=== PATIENT | male | born 1950 | race Caucasian/White ===

== ENCOUNTER 2016-10-22 23:11 | Inpatient (IN) | payer OTHER ==
[~2016-10-22] VITALS: Ht 180.3 cm; Wt 89.4 kg
--- NOTE | ~2016-10-22 | WRIGHTHP ---
[place], [place] PATIENT HISTORY AND PHYSICAL EXAM NAME: NICHOL MG UNIT #: [id number] ROOM: [facility] DOCTOR: LISA CORTES MD BIRTHDATE: [birth year] DATE OF DICTATION: 10/23/16 DATE OF ADMISSION: 10/23/16 HISTORY OF PRESENT ILLNESS: The patient is a 66-year-old gentleman with a past medical history of end-stage kidney disease and kidney failure. The patient requires hemodialysis, complete heart block with dual chamber placement by Dr. Marin, systolic type congestive heart failure, type 2 diabetes mellitus, benign essential hypertension, history of chronic atrial fibrillation, status post pacemaker placement, history of osteomyelitis of the C-spine with multiple surgeries with paraplegia and chronic urine retention, which requires straight catheterization, posttraumatic stress syndrome. The patient presented to the Emergency Department with increasing complaints of shortness of breath and some recurrent chest pains, precordial chest pains since Sunday. The patient was seen in the Emergency Department for these symptoms and found to be in acute congestive heart failure by Dr. Rogers. The patient was initially given IV nitroglycerin and diuretics and recommended for admission and further management. After admission, the patient is undergoing hemodialysis. The patient says he has no chest pains anymore, but his troponin level was found to be minimally elevated at 0.54. The patient is asymptomatic now, and his breathing is improving as the fluid is being removed at hemodialysis in the ICU. No dizziness or fainting episodes. No other GI or urinary symptoms. REVIEW OF SYSTEMS: LUNGS: With increased shortness of breath for the last few days. GASTROINTESTINAL: No nausea, vomiting, diarrhea, constipation. CARDIOVASCULAR SYSTEM: Complains of recurrent precordial chest pains prior to admission. SOCIAL HISTORY: The patient lives at home with the help of his family. Denies smoking cigarettes, alcohol and drug abuse. FAMILY HISTORY: Noncontributory. HOME MEDICATIONS: Lisinopril, Bumex, amlodipine, bupropion, calcium, doxycycline, gabapentin, melatonin, Protonix, Flomax, trazodone, venlafaxine, Levemir insulin. PHYSICAL EXAMINATION: GENERAL: Alert and oriented x3. Generalized weakness. VITAL SIGNS: Blood pressure 146/75, heart rate of 85 beats per minute, breathing 20 times per minute, temperature 98.4 degrees Fahrenheit. HEENT AND NECK: Extraocular movements are intact. Sclerae are anicteric. Oral mucosa is moist and clean. No obvious facial weakness. Neck is supple without any lymphadenopathy. No thyromegaly. No JVD. No carotid arterial bruits. LUNGS: Clear to auscultation. No wheezing. No rhonchi. CARDIOVASCULAR SYSTEM: Heart rate is regular in rate and rhythm. S1 and S2 normally audible. No significant murmur or any other abnormal cardiac sounds. ABDOMEN: Soft, nontender. No obvious organomegaly. Bowel sounds are present. No obvious herniation. EXTREMITIES: Without significant cyanosis or edema. Warm to touch. CENTRAL NERVOUS SYSTEM: Alert and oriented x 3. Cranial nerves 2 through 12 are intact. Speech is normal. The patient is able to move all extremities. Normal muscle strength. Deep tendon reflexes are equal on both sides. Plantars were downgoing. [place], [place] PATIENT HISTORY AND PHYSICAL EXAM NAME: NICHOL MG UNIT #: [id number] ROOM: [facility] DOCTOR: LISA CORETS MD BIRTHDATE: [birth year] IMPRESSION: 1. The patient with minimally positive cardiac enzymes and recurrent chest pains. His manager medical affairs, Dr. Marin has been consulted for further management. 2. Acute congestive heart failure for which patient is on hemodialysis and extra fluid is being removed. 3. Acute systolic congestive heart failure, being treated. 4. Generalized disability and quadriplegia with previous history of osteomyelitis of the C-spine and treatment. We are taking bedsore precautions. 5. End-stage kidney disease and kidney failure. The patient is on hemodialysis. 6. Type 2 diabetes mellitus. The patient's blood sugars are being monitored daily kept on no concentrated sweet diet and treated accordingly. 7. Complete heart block with dual chamber pacemaker placement by Dr. Marin. The patient with 100% capture on the monitoring analyst. LISA CORTES MD CM:HISPHYS:PATIENT HISTORY AND PHYSICAL EXAMINATION 8 8 LISA CORTES MD 10/24/16 1547 CLAIRE PARSON MIS.R
[2016-10-22 23:11] VITALS: BP 152/79
[~2016-10-22 23:11] MED LIST: AMLODIPINE BES1 TA1 PO; ANAPROX DS550 MG PO; ASPI-COR81 M1 PO; BUPROPION HCL100 M2 PO; BUPROPION HCL100 MG PO; CALCIUM ACETAT667 MG PO; CLONIDINE0.1 MG PO; Cimetidine300 MG PO; Duoneb 3ML 3 MG/3 ML INH; EMLA 2.5% 30GM30 GM PO; FLEXERIL10 MG PO; FUROSEMIDE40 MG PO; GABAPENTIN100 M2 PO; GLIPIZIDE5 MG PO; HUMALOG100 U/ML SC; HYDR12.5C PO; KLOR-CON 1010 MEQ PO; LANTUS100 U/ML SC; LASIX100 MG/10 IV; LEVAQUIN250 M1 PO; LEVEMIR10 ML SC; LEVOFLOXACIN500 MG PO; LISINOPRIL10 M1 PO; LISINOPRIL20 MG PO; PEPCID20 MG PO; PERCOCET 325 MG1 TA2 PO; PROTONIX TR40 MG PO; PULMICORT RESP0.5 MG INH; TAGAMET300 MG PO; TAMSULOSIN HYD0.4 MG PO; TOPROL XL50 MG PO; TRAZODONE HYDR100 MG PO; VENLAFAXINE HYD25 MG PO; VENLAFAXINE HYD75 MG PO; VIBRAMYCIN HYC100 MG PO; VICODIN 5-3001 EACH PO; WARFARIN SODIU7.5 MG PO
[2016-10-22 23:38] LABS: BASO % 0.6 % (0.0-1.0); EOS # 0.3 10*3/uL (0.0-0.4); EOS % 4.2 % (1.0-4.0); HEMATOCRIT 26.7 % (42.0-52.0); HEMOGLOBIN 8.8 g/dl (14.0-18.0); IG # 0.1 10*3/uL (0.0-0.1); LYMPH # 0.9 10*3/uL (1.3-4.4); LYMPH % 12.1 % (27.0-41.0); MEAN CELL VOLUME 100.8 fl (80.0-94.0); MEAN CORPUSCULAR HGB 33.2 pg (27.0-31.0); MEAN PLATELET VOLUME 10.1 fl (9.6-12.3); MONO # 0.5 10*3/uL (0.1-1.0); MONO % 6.3 % (3.0-9.0); NEUT # 5.5 10*3/uL (2.3-7.9); NEUT % 75.7 % (47.0-73.0); PLATELET COUNT AUTOMATED 186 10*3/uL (130-400); RED BLOOD COUNT 2.65 10*6/uL (4.50-5.90); RED CELL DISTRI WIDTH 15.2 % (0-14.5); WHITE BLOOD COUNT 7.2 10*3/uL (4.8-10.8)
[2016-10-22] MEDS ORDERED: DOXYCYCLINE100 M3 PO (23:41)
[2016-10-22] MEDS ORDERED: MELATONIN1 M4 PO (23:42)
[2016-10-22] MEDS ORDERED: BUMETANIDE2 MG PO (23:42)
[2016-10-22 23:45] VITALS: BP 159/80
[2016-10-22 23:46] LABS: PROTHROMBIN TIME 11.1 SECONDS (9.0-12.4)
[2016-10-22 23:52] LABS: ALBUMIN 3.1 gm/dl (3.1-4.5); BILIRUBIN, TOTAL 0.5 mg/dl (0.2-1.0); MAGNESIUM 2.1 mg/dL (1.5-2.1); POTASSIUM 4.6 mmol/L (3.5-5.1); TOTAL PROTEIN 6.9 gm/dL (6.4-8.2); TROPONIN I 0.041 ng/ml (<0.045)
[2016-10-23] VITALS (8 sets, daily range): BP systolic 136–164; BP diastolic 64–88
[2016-10-23] MEDS ORDERED: FLOMAX0.4 MG PO (02:44)
== END 2016-10-23 21:48 | disposition short-term general hospital (02) | DRG 291 ==
LOC: ED 23:11 → EDHOLD 10-23 00:54 → ICCU 10-23 01:48
PROVIDERS: Emergency Medicine Emergency Medical Services
DX: I13.2 Hypertensive heart and chronic kidney disease with heart failure and with stage 5 chronic kidney disease, or end stage renal disease (principal); I50.21 Acute systolic (congestive) heart failure; G82.50 Quadriplegia, unspecified; I44.2 Atrioventricular block, complete; J18.1 Lobar pneumonia, unspecified organism; N18.6 End stage renal disease; E11.22 Type 2 diabetes mellitus with diabetic chronic kidney disease; E11.40 Type 2 diabetes mellitus with diabetic neuropathy, unspecified; R07.9 Chest pain, unspecified; I48.2 Chronic atrial fibrillation; E78.5 Hyperlipidemia, unspecified; F43.10 Post-traumatic stress disorder, unspecified; D64.9 Anemia, unspecified; Z98.1 Arthrodesis status; Z95.0 Presence of cardiac pacemaker; Z87.81 Personal history of (healed) traumatic fracture; Z99.2 Dependence on renal dialysis; Z79.4 Long term (current) use of insulin; Z88.1 Allergy status to other antibiotic agents

== ENCOUNTER 2016-11-23 00:16 | Inpatient (IN) | payer OTHER ==
[~2016-11-23] VITALS: Ht 180.3 cm; Wt 87.7 kg
--- NOTE | ~2016-11-23 | PR ---
[place], [place] PROGRESS NOTE NAME: NICHOL MG UNIT #: [id number] ROOM: 524 DOCTOR: ANNALISA PRINCE MD BIRTHDATE: [birth year] DOS: 11/28/2016 PULMONARY PROGRESS NOTE SUBJECTIVE: The patient was seen and examined on 11/28/2016. He has been comfortably resting at this time, sitting on his bed. The patient has not been noted with symptoms of any chest pain. The coughing of the patient has been improving. Shortness of breath has continued to show progressive resolution. The patient denies any symptoms of chest pain. The coughing of the patient has improved significantly. The shortness of breath has been resolving. Denies symptoms of abdominal pain. The patient has been receiving his routine hemodialysis 3 times a week. OBJECTIVE: VITAL SIGNS: For the patient which were recorded showed the temperature of the patient recorded as normal. The respiratory rate 20, heart rate 90, blood pressure 150/63. HEENT: Examination shows no acute change. NECK: Supple. CARDIOVASCULAR: S1, S2 is audible. LUNGS: The patient was noted without any wheezing or crackles on the left side. Questionable crackles were noted with moderate reduction in breath sounds in the right lung. ABDOMEN: Soft, nontender. IMPRESSION: 1. The patient with resolving acute bacterial pneumonia with improving acute respiratory failure as well. 2. Acute on chronic hypoxic respiratory failure. 3. The patient with end-stage renal failure, on hemodialysis. PLAN OF TREATMENT: No changes in plan of management. Continue the patient on current therapy, plan of management at this time. Discharge planning could be started for this patient. Other supportive plan of therapy and care. [place], [place] PROGRESS NOTE NAME: NICHOL MG UNIT #: [id number] ROOM: 524 DOCTOR: ANNALISA PRINCE MD BIRTHDATE: [birth year] ANNALISA FARRAR MD CM:PNTRANS [id number] ANNALISA CASH MD 11/29/16 0631 interface
--- NOTE | ~2016-11-23 | PR ---
[place], [place] PROGRESS NOTE NAME: NICHOL MG UNIT #: [id number] ROOM: [facility] DOCTOR: RIANA SERRANO MD BIRTHDATE: [birth year] DOS: 11/24/2016 SUBJECTIVE: The patient became increasingly short of breath in the evening, was transferred to the ICU and I did change some of his antibiotic regimen. This morning, he is still pretty short of breath, has to sit up to breathe. OBJECTIVE: VITAL SIGNS: Pressure is 146/73, pulse of 91, respirations about 25, temperature 98.1 with a T-max of 101.6. LUNGS: Diminished breath sounds, scattered rales and rhonchi heard bilaterally. HEART: Regular, paced rhythm on the monitor. ABDOMEN: Obese, soft. EXTREMITIES: Without any edema. ASSESSMENT AND PLAN: 1. Right middle and lower lobe pneumonia, on IV antibiotics. Blood cultures are pending. 2. Acute hypoxic respiratory failure. The patient was placed on BiPAP, has tolerated that well. He is okay with intubation if needed. 3. History of pacemaker placement for complete heart block. He did develop episode where the heart rate did go up into the 160s, 1 dose of digoxin was given. 4. End-stage renal failure, on dialysis. Consult Dr. Aguilar. 5. Type 2 diabetes mellitus, insulin-dependent, readjust insulin dosage. RIANA SERRANO MD CM:PNTRANS [phone] RIANA SERRANO MD 11/24/16 0846 interface
--- NOTE | ~2016-11-23 | PR ---
[place], [place] PROGRESS NOTE NAME: NICHOL MG UNIT #: [id number] ROOM: 524 DOCTOR: ANNALISA PRINCE MD BIRTHDATE: [birth year] DOS: 11/30/2016 PULMONARY PROGRESS NOTE SUBJECTIVE: He has been comfortably resting at this time on his bed. Denies symptoms of chest pain, coughing or any sputum expectoration. The patient has been receiving hemodialysis per order of the Nephrology services 3 times per week. OBJECTIVE: VITAL SIGNS: Showed normal temperature, the patient's respiratory rate 17, heart rate 102, blood pressure 127/58. Intake 650, the patient's output was 100 mL, pulse oxygen saturation on 2.5 liters nasal cannula 99% saturation. HEENT: Shows no acute change. NECK: Supple. CARDIOVASCULAR: S1, S2 audible. LUNGS: Noted with questionable crackles in the right lung. There was no wheezing. ABDOMEN: Soft, nontender. LABORATORY DATA: BMP today: BUN 35, creatinine 4.43. Remaining electrolytes normal. CBC this morning, WBC count 11.6, hemoglobin 11.8, hematocrit 36.4, platelet count 189,000. The chest x-ray of the patient that was done this morning for this patient shows clear left lung for this patient and the right lung for this patient noted with chronic pleural thickening as previously with small infiltration in the right lower lobe. IMPRESSION: 1. Acute pneumonia, clinically improved for this patient progressively with stable changes on the chest x-ray was also noted. 2. End-stage renal failure, on hemodialysis. 3. Resolving acute on chronic hypoxic respiratory failure and improvement in the acute exacerbation of bronchial asthma. PLAN OF TREATMENT: No changes in the plan of management for this patient at this time. The patient will be continued with current plan of therapy as previously. Other supportive plan and management as well. Usual care. The patient has been suggested about placement in Care Home Facility because of current debility and failure to thrive, but the patient refused to do so and may be discharged home today. [place], [place] PROGRESS NOTE NAME: NICHOL MG UNIT #: [id number] ROOM: 524 DOCTOR: ANNALISA PRINCE MD BIRTHDATE: [birth year] ANNAILSA FARRAR MD CM:PNTRANS [phone] [id number] ANNALISA CASH MD 12/01/16 0133 interface
--- NOTE | ~2016-11-23 | PR ---
[place], [place] PROGRESS NOTE NAME: NICHOL MG UNIT #: [id number] ROOM: [facility] DOCTOR: PRAVIN MIRZA MD BIRTHDATE: [birth year] DOS: REASON FOR FOLLOWUP: End-stage renal disease. SUBJECTIVE: The patient today reports feeling better. He has no major complaint. Overnight, he was transferred back to the ICU due to increasing shortness of breath. Denies any fever, chills, vomiting, or diarrhea. PHYSICAL EXAMINATION: VITAL SIGNS: Blood pressure ____, heart rate 96, temperature 100.1. GENERAL: The patient is awake, alert, in no acute distress. He is sitting comfortably on the chair. HEENT: Pupils are equal and reactive to light. NECK: Supple. There is no jugular venous distention. LUNGS: He has decreased breath sounds at the bases. HEART: Sounds are irregularly irregular. ABDOMEN: Soft, nontender. EXTREMITIES: He has 1+ bilateral lower extremity edema. LABORATORY DATA: Most recently obtained from 11/23, glucose 227, BUN 31, creatinine 4.05, sodium 137, potassium 3.6, chloride 94, carbon dioxide 35, calcium 8.2. White count was 6.1, hemoglobin 10.9, hematocrit 33.1, and platelet count 195. IMPRESSION: 1. End-stage renal disease, on intermittent hemodialysis 3 times a week, Sunday, Sunday, and Sunday, the patient is tolerating dialysis very well. 2. Respiratory failure due to chronic obstructive pulmonary disease exacerbation and right lower lobe pneumonia, on antibiotics per Infectious Disease. 3. Anemia. His hemoglobin is adequate at this point, he will be started on Epogen 6000 units on dialysis 3 times a week. PLAN: 1. We will continue with dialysis 3 times a week, Sunday, Sunday, and Sunday. 2. Epogen 6000 units 3 times a week. 3. Continue to monitor his laboratory tests on a daily basis. 4. Okay to transfer to telemetry bed from renal point of view. [place], [place] PROGRESS NOTE NAME: NICHOL MG UNIT #: [id number] ROOM: [facility] DOCTOR: PRAVIN MIRZA MD BIRTHDATE: [birth year] PRAVIN MIRZA MD CM:PNTRANS [id number] PRAVIN MIRZA MD 11/27/16 0306 interface
--- NOTE | ~2016-11-23 | PR ---
[place], [place] PROGRESS NOTE NAME: NICHOL MG UNIT #: [id number] ROOM: 524 DOCTOR: RIANA SERRANO MD BIRTHDATE: [birth year] DOS: 11/30/2016 SUBJECTIVE: The patient states that he feels better and would like to go home. He has refused SNF placement. OBJECTIVE: VITAL SIGNS: Blood pressure is 112/59, pulse of 107, respirations 20, temperature 99.1. LUNGS: Diminished breath sounds. HEART: Regular. ABDOMEN: Obese, soft. EXTREMITIES: Without any edema. ASSESSMENT AND PLAN: 1. Pneumonia, improvement noticed on the chest x-ray findings and right middle lobe pneumonia still present, but it is slowly resolving. The patient will continue to receive IV antibiotics during the dialysis days. 2. Type 2 diabetes mellitus, insulin-dependent. Blood sugars are better this morning. Glipizide was added yesterday. 3. End-stage renal failure, on dialysis. 4. Benign hypertension, controlled. Plan will be to follow up as an outpatient. RIANA SERRANO MD CM:PNTRANS [phone] RIANA SERRANO MD 11/30/162124 interface
--- NOTE | ~2016-11-23 | PR ---
[place], [place] PROGRESS NOTE NAME: NICHOL MG UNIT #: [id number] ROOM: [facility] DOCTOR: CHARAN CASH MD,ANNALISA BIRTHDATE: [birth year] DOS: 11/24/2016 PULMONARY PROGRESS NOTE SUBJECTIVE: The patient has developed significant distress last evening. He was noted extremely anxious. The patient was given 0.25 mg of Ativan for this patient and started on the BiPAP after obtaining arterial blood gases. The patient was also noted with tachycardia and some hypertensive response as well. He was transferred to Intensive Care Unit for patient for the medical management. Rectal temperature noted 102 degrees Fahrenheit. The patient has been noted comfortable at this time, but using the BiPAP for the patient as ordered. The tachycardia has been noted. The blood pressure was also noted for the patient in good range. OBJECTIVE: VITAL SIGNS: The temperature highest of 102 degrees Fahrenheit rectally noticed. This morning oral temperature noted normal, respiratory rate of 16, highest was noted yesterday at 30. Heart rate was noted maximum heart rate of 116 beats per minute, sinus tachycardia, currently noted 91, blood pressure noted at 146/73 this morning. The pulse oxygen saturation for the patient on 3 L nasal cannula was 97% saturation, on the BiPAP for the patient 06/13 35% oxygen 98% saturation recorded. HEENT: Examination shows head was atraumatic. Eyes nonicterus. NECK: Supple. CARDIOVASCULAR SYSTEM: S1, S2 audible. LUNGS: Noted with crackles of the lungs for the patient noted with expiratory wheezing for the patient which was noted somewhat decreased from yesterday's examination. ABDOMEN: Soft, nontender. LABORATORY DATA: Urinalysis showed 2+ leukocyte esterase. Arterial blood gas for the patient, pH of 7.40, pCO2 of 48, pO2 81 On 3 L nasal cannula oxygen supplementation. CT scan of the chest for the patient that was done without contrast was personally reviewed shows right middle lobe and right lower lobe infiltration noted with a very small pleural effusion on the right side. IMPRESSION: 1. The patient with pneumonia involving the right middle and right lower lobe consolidation for this patient was noted with chronic, most likely pleural thickening for this patient secondary to previous VATS procedure for this patient not noted with any recurrence. 2. Acute respiratory failure with acute exacerbation of bronchial asthma as well. The pneumonia has been considered aspiration gram-positive organism for this patient. PLAN OF TREATMENT: Continue the current dose of Solu-Medrol, bronchodilators, antibiotics, monitor respiratory status closely. The patient appeared to be comfortable at this time responding to treatment with no further changes in the treatment needs to be done. All other treatment plan of therapy to be continued as previously. Usual care. Supportive care and other treatment, plan and [place], [place] PROGRESS NOTE NAME: NICHOL MG UNIT #: [id number] ROOM: [facility] DOCTOR: ANNALISA PRINCE MD BIRTHDATE: [birth year] management. ANNALISA FARRAR MD CM:PNTRANS [phone] ANNALISA CASH MD 11/25/160 interface
--- NOTE | ~2016-11-23 | PR ---
[place], [place] PROGRESS NOTE NAME: NICHOL MG UNIT #: [id number] ROOM: 524 DOCTOR: RIANA SERRANO MD BIRTHDATE: [birth year] DOS: 11/28/2016 SUBJECTIVE: The patient is doing fine without any complaint. Denies any chest pains, palpitations. He did eat well. OBJECTIVE: VITAL SIGNS: Graphic trend shows a pressure of 126/74, pulse of 90, respirations 20, temperature 98.5. LUNGS: Diminished breath sounds. No wheezes, rales or rhonchi heard this morning. HEART: Regular. ABDOMEN: Obese. EXTREMITIES: Without any edema. LABORATORY DATA: A chest x-ray shows improving right lower lobe pneumonia. Sputum culture shows some light yeast. ASSESSMENT AND PLAN: 1. Acute pneumonia, right side, both upper and middle lobe pneumonia. The patient is on IV antibiotics, which will be continued. 2. Vancomycin-resistant enterococci of the urine, on Zyvox. 3. End-stage renal failure, on dialysis. 4. Failure to thrive adult. The patient was ordered a PT consult, evaluation is pending. If they feel that he needs to be in a skilled rehab facility, we will go ahead and arrange for that. RIANA SERRANO MD CM:PNTRANS [id number] RIANA SERRANO MD 11/28/16 2359 interface
--- NOTE | ~2016-11-23 | DS ---
[place], [place] DISCHARGE SUMMARY NAME: NICHOL MG UNIT #: [id number] ROOM: 524 DOCTOR: RIANA SERRANO MD BIRTHDATE: [birth year] DOS: 11/30/2016 DIAGNOSES: 1. Acute hypoxic respiratory failure. 2. Pneumonia, right middle and lower lobe with slow resolution. 3. Vancomycin-resistant Enterococcus of the urine. 4. End-stage renal failure, on dialysis. 5. Type 2 diabetes mellitus, insulin-dependent, poorly controlled. Further adjustments in medications made. 6. Adult failure to thrive, refused SNF placement. HOSPITAL COURSE: This patient is very well known to us, comes in with complaints of difficulty breathing. He has had a cough and fever and was diagnosed with pneumonia. After admission, the patient was found to have acute hypoxic respiratory failure, was transferred to the ICU, was placed on BiPAP and oxygen supplementation. Dr. Angel was consulted, multiple IV antibiotics were added and reid cultures were done. Dr. Aguilar was consulted for his dialysis. His blood sugars have not been very well controlled, adjustments in insulin and addition of glipizide was done during this admission. Pressures have been controlled. Multiple blood cultures have come back negative. The urine culture shows VRE and sputum culture shows light yeast. Clinically, the patient has improved. Chest x-ray has also continued to show improvement in the pneumonia, but not completely resolved. PT/OT did evaluate him and feels that the patient would benefit from SNF placement that he has steadfastly refused. His white cell count this morning is 11.6, rest of the labs are fairly within normal limits except for a BUN of 35 and creatinine of 4.43. The patient is stable and can be discharged to home since he has declined SNF placement, we will try to get PT/OT at home, visiting nurses have been consulted. RIANA SERRANO MD CM:DISCHARG [id number] RIANA SERRANO MD 11/30/16 1519 interface
--- NOTE | ~2016-11-23 | PR ---
[place], [place] PROGRESS NOTE NAME: NICHOL MG UNIT #: [id number] ROOM: 524 DOCTOR: ANNALISA PRINCE MD BIRTHDATE: [birth year] DOS: 11/25/2016 PULMONARY PROGRESS NOTE SUBJECTIVE: The patient continues to show improvement in the respiratory symptoms, reduction in symptoms of coughing and shortness breath. Denies symptoms of chest pain, abdominal pain this morning. The patient was assessed and receiving hemodialysis. OBJECTIVE: VITAL SIGNS: For the patient which were recorded shows normal temperature, respiratory rate 19, heart rate 96, blood pressure 111/81. Pulse oxygen saturation of the patient recorded as 95% on 3 L nasal cannula. HEENT: Examination shows no new change. NECK: Supple. CARDIOVASCULAR: S1, S2 audible. LUNGS: The patient was noted with mild crackles with decreased breath sounds in the right lung. ABDOMEN: Soft, nontender. LABORATORY DATA: BMP today: BUN 100, creatinine 7.21, glucose 178, potassium 5.3. Culture of the sputum showed light growth of yeast. CBC this morning, hemoglobin 10.3, hematocrit 31.1, platelet count and WBC count were normal. Chest x-ray of the patient shows improving aeration of the right lung. IMPRESSION: 1. Acute kidney injury, patient on hemodialysis with progressive resolution of the acute pneumonia was noted with the chest x-ray that was assessed today. 2. Improving acute exacerbation of bronchial asthma. 3. Chronic right pleural thickening. Pleural thickening noted nonmalignant. PLAN OF TREATMENT: Continue gradual reduce in Solu-Medrol. Continue bronchodilators, oxygen supplementation. Other treatment therapy, plan of management and care. Usual treatment. No other change in treatment otherwise will be needed for this patient today. [place], [place] PROGRESS NOTE NAME: NICHOL MG UNIT #: [id number] ROOM: 524 DOCTOR: ANNALISA PRINCE MD BIRTHDATE: [birth year] ANNALISA FARRAR MD CM:PNTRANS [phone] ANNALISA CASH MD 11/28/16 0320 interface
--- NOTE | ~2016-11-23 | PR ---
[place], [place] PROGRESS NOTE NAME: NICHOL MG UNIT #: [id number] ROOM: [facility] DOCTOR: CHARAN CASH MD,ANNALISA BIRTHDATE: [birth year] DOS: 11/26/2016 SUBJECTIVE: He has been sitting on the chair in his room in the Intensive Care Unit without any acute distress at this time. The coughing, shortness of breath, all symptoms have been resolving. OBJECTIVE: VITAL SIGNS: Temperature 100.1 degrees Fahrenheit, normal temperature, respiratory rate 18 this morning, heart rate of 106. The blood pressure 137/71, pulse oxygen saturation on 3 liters nasal cannula 94% saturation. HEENT: Examination shows no acute change. NECK: Supple. CARDIOVASCULAR: S1, S2 audible. LUNGS: The patient noted without any wheezing or crackles on the left side. Some crackles noted in the right lower lung. ABDOMEN: Soft, nontender. LABORATORY DATA: CBC: WBC count 4.0, hemoglobin 10.6, hematocrit 32.1, platelet count were normal. Culture of the sputum was noted as no bacterial growth. The BMP this morning, BUN of 73, creatinine 6.02, glucose 385. IMPRESSION: 1. The patient with resolving acute exacerbation of bronchial asthma with improving acute pneumonia progressively and clinically. 2. History of hemodialysis. 3. Uncontrolled diabetes mellitus as well. PLAN OF TREATMENT: Change the Solu-Medrol 40 mg b.i.d. that will also result in improvement in the uncontrolled diabetes mellitus. Repeat chest x-ray in the morning for reassessment of the pneumonia. All other supportive therapy, plan of management as well. Usual treatment. Further treatment changes will be done based on progression of the illness. ANNALISA FARRAR MD CM:PNTRANS 1626 ANNALISA CASH MD 11/27/1629 interface
--- NOTE | ~2016-11-23 | PR ---
[place], [place] PROGRESS NOTE NAME: NICHOL MG UNIT #: [id number] ROOM: [facility] DOCTOR: SOPHIA JESSU,LISA Davis BIRTHDATE: [birth year] DOS: 11/25/2016 SUBJECTIVE: The patient says his breathing is improving. He is on BiPAP and remains in the ICU. OBJECTIVE: GENERAL APPEARANCE: The patient is alert and oriented x 3, in no visible distress. VITAL SIGNS: VITAL SIGNS: Blood pressure 138/66, heart rate 96 beats per minute, breathing 21 times per minute, temperature of 100.1 degrees Fahrenheit. HEENT AND NECK: Exam within normal limits. CARDIOVASCULAR SYSTEM: Heart rate is regular in rate and rhythm. S1 and S2 normally audible. LUNGS: Decreased breath sounds on lung auscultation. ABDOMEN: Soft, nontender. No obvious organomegaly. Bowel sounds are present. EXTREMITIES: Without significant cyanosis or edema. IMPRESSION: 1. The patient with right middle and right lower lobe pneumonia, being treated with antibiotics. Dr. Angel is following. 2. Acute over chronic respiratory failure with exacerbation of chronic obstructive pulmonary disease being treated with BiPAP, bronchodilators, oxygen. 3. Type 2 diabetes mellitus, insulin requiring. Blood sugars are elevated and being covered with insulin. 4. End-stage kidney disease and failure. The patient on hemodialysis. LISA CORTES MD CM:PNTRANS [phone] LISA CORTES MD 11/26/16 0001 interface
--- NOTE | ~2016-11-23 | PR ---
[place], [place] PROGRESS NOTE NAME: NICHOL MG UNIT #: [id number] ROOM: [facility] DOCTOR: CHARAN CASH MD,ANNALISA BIRTHDATE: [birth year] DOS: 11/25/2016 PULMONARY PROGRESS NOTE SUBJECTIVE: He had been noted comfortable at this time, sitting on the chair eating his food. Denies symptoms of abdominal pain. Shortness of breath has been improving, using the BiPAP for the patient as advised. OBJECTIVE: VITAL SIGNS: For the patient, which were recorded showed the temperature noted as normal, respiratory rate recorded as 17, heart rate 106, blood pressure of 144/64. The pulse oxygen saturation of the patient recorded as 97% on 4 L nasal cannula, 100% on 40% oxygen supplementation with use of the BiPAP. HEENT: Examination showed no acute change. NECK: Supple. CARDIOVASCULAR SYSTEM: S1, S2 audible. LUNGS: Scattered wheezing in the lung was noted. Crackles of the lung was still noted in the right mid and the lower portion of the lung. IMPRESSION: 1. The patient with ongoing acute exacerbation of bronchial asthma with acute tracheobronchitis. 2. Acute pneumonia, right middle and the right lower lobe for the patient was also noted. PLAN OF TREATMENT: Continuation of current therapy as in progress without any other changes. Continue other supportive therapy, plan and management, usual care. The patient could be transferred from the Intensive Care Unit to telemetry floor. Continue use of the BiPAP and the hemodialysis as well. ANNALISA FARRAR MD CM:PNTRANS [phone] ANNALISA CASH MD 11/25/162141 interface
--- NOTE | ~2016-11-23 | PR ---
[place], [place] PROGRESS NOTE NAME: NICHOL MG UNIT #: [id number] ROOM: [facility] DOCTOR: SOPHIA JESUS,LISA Davis BIRTHDATE: [birth year] DOS: 11/26/2016 SUBJECTIVE: The patient says he is breathing somewhat better. OBJECTIVE: VITAL SIGNS: Blood pressure 164/77, heart rate of 100 beats per minute, breathing 24 times per minute, temperature 98 degrees Fahrenheit. The patient on BiPAP with a facemask and lungs showed decreased breath sounds with basal crackles. IMPRESSION: 1. The patient with urinary tract infection with Enterococcus faecium more than 100,000 colonies, now being treated with linezolid. 2. End-stage kidney failure. The patient on hemodialysis. 3. Acute over chronic respiratory failure with exacerbation of chronic obstructive pulmonary disease, being treated with BiPAP. 4. Acute respiratory failure, also secondary to right middle and right lower lobe pneumonia, being treated with antibiotics. Dr. Angel, the hanger off, following him. 5. Type 2 diabetes mellitus with elevated blood sugars secondary to use of corticosteroids. I am starting him on sliding scale of regular insulin along with q.i.d. bedside sugar checks. LISA CORTES MD CM:PNTRANS [phone] LISA CORTES MD 11/27/16 0434 interface
--- NOTE | ~2016-11-23 | PR ---
[place], [place] PROGRESS NOTE NAME: NICHOL MG UNIT #: [id number] ROOM: 524 DOCTOR: ANNALISA PRINCE MD BIRTHDATE: [birth year] DOS: 11/29/2016 PULMONARY PROGRESS NOTE SUBJECTIVE: He has been noted comfortable sitting on the chair for the patient in his room eating his breakfast. Shortness of breath for the patient continued to resolve progressively. Denied symptoms of chest pain or any abdominal pain. OBJECTIVE: VITAL SIGNS: For the patient which were recorded showed the temperature of the patient noted as normal, respiratory rate 18, heart rate of 102, blood pressure 154/72. Pulse oxygen saturation recorded liter cannula 90% saturation. HEENT: Examination shows no acute change. NECK: Supple. CARDIOVASCULAR SYSTEM: S1, S2 is audible. LUNGS: The patient was noted without any crackle, rhonchi or wheezing. The improvement in the air entry for the patient was noted as for resolving crackles of the right lung. ABDOMEN: Soft, nontender. LABORATORY DATA: Vancomycin trough level noted 18.8. Renal function panel today, BUN 75, creatinine 7.06. Glucose 437. CBC: Hemoglobin 10.9, hematocrit 33.8. IMPRESSION: 1. The patient with progressive resolution of the acute exacerbation of chronic obstructive pulmonary disease, psuny-ox-jafoeto hypoxic respiratory failure and others. 2. Hyperglycemia of the patient as well. PLAN OF TREATMENT: Continuation of the current plan of management for this patient. The dose of steroids has been changed for the patient to prednisone [address] Tianna Branham. Continue medical management of diabetes mellitus. Adjust the antibiotics for the patient according to the cultures. The patient is getting the vancomycin and the Zyvox for the patient. The vancomycin will be discontinued since the patient already Zyvox which will get coverage for the gram-positive organisms except VRE that is already being treated with the Zyvox. Chest x-ray of the patient was ordered to be done today for this patient for reassessment of progression of the pneumonia. [place], [place] PROGRESS NOTE NAME: NICHOL MG UNIT #: [id number] ROOM: 524 DOCTOR: ANNALISA PRINCE MD BIRTHDATE: [birth year] ANNALISA FARRAR MD CM:PNTRANS 3 ANNALISA CASH MD 11/30/16223 interface
--- NOTE | ~2016-11-23 | PR ---
[place], [place] PROGRESS NOTE NAME: NICHOL MG UNIT #: [id number] ROOM: 524 DOCTOR: RIANA SERRANO MD BIRTHDATE: [birth year] DOS: 11/29/2016 SUBJECTIVE: The patient is feeling good, does not have any complaints today. OBJECTIVE: VITAL SIGNS: Graphic trend shows a pressure 150/64, pulse of 107, respirations 20, temperature 98.8. LUNGS: Diminished breath sounds, clear. HEART: Regular. ABDOMEN: Obese, soft. EXTREMITIES: Without any edema. Therapy evaluation was done yesterday. They suggested SNF, but the patient has refused. LABORATORY DATA: No labs available this morning. Blood sugar is 434 at 6:17 a.m. ASSESSMENT AND PLAN: 1. End-stage renal failure, on dialysis. The patient have dialysis today. 2. Right middle and lower lobe pneumonia on IV antibiotics. The patient is improving. The plan is to discharge him to home tomorrow. 3. Vancomycin-resistant Enterococci of the urine on Zyvox p.o., which will be continued tomorrow. 4. Adult failure to thrive. He should really go to a intermediate home, but the patient has refused. He is in charge of his 17-year-old grandson who lives with him, so he really does not want to be placed. Routine labs will be ordered tomorrow. The plan is to discharge him to home tomorrow. RIANA SERRANO MD CM:PNTRANS [phone] RIANA SERRANO MD 11/30/16 0011 interface
--- NOTE | ~2016-11-23 | PR ---
[place], [place] PROGRESS NOTE NAME: NICHOL MG UNIT #: [id number] ROOM: [facility] DOCTOR: RIANA SERRANO MD BIRTHDATE: [birth year] DOS: 11/27/2016 SUBJECTIVE: The patient has no complaints today. Has been feeling better. OBJECTIVE: VITAL SIGNS: Graphic trend shows a pressure of 168/73, pulse of 97, respirations 14, temperature 97.8. LUNGS: Diminished breath sounds. No wheezes heard this morning. HEART: Regular. ABDOMEN: Obese. EXTREMITIES: Without any edema. LABORATORY DATA: Urine culture shows Enterococcus faecium, which is sensitive to Zyvox, which will be added p.o. Sputum culture shows light yeast. Blood sugar was 403. Blood culture shows no bacterial growth. ASSESSMENT AND PLAN: 1. Right middle and lower lobe pneumonia, on IV antibiotics. Clinically as well as radiologically improving. X-ray is pending from today. 2. Urine culture showing Enterococcus faecium. We will start him on Zyvox. 3. Adult failure to thrive. We will get PT, OT to evaluate him. The patient is wanting to go home. 4. Type 2 diabetes mellitus, insulin-dependent with steroid-induced hyperglycemia. Blood sugars should come down once the steroids are tapered. RIANA SERRANO MD CM:PNTRANS [phone] RIANA SERRANO MD 11/27/16 0909 interface
--- NOTE | ~2016-11-23 | CON ---
[place], [place] REPORT OF CONSULTATION NAME: NICHOL MG UNIT #: [id number] ROOM: [place] [address] DOCTOR: CHARAN CASH MD,ANNALISA BIRTHDATE: [birth year] DOS: 11/23/2016 PULMONARY CONSULTATION EVALUATION AND MANAGEMENT CONSULTATION REQUESTED BY: Dr. Tianna Branham. REASON FOR CONSULTATION: Assess the patient for increased symptoms of shortness of breath and others. HISTORY OF PRESENT ILLNESS: A 66 years old white male with history of chronic hypoxic respiratory failure, was seen in my office yesterday because of increased respiratory symptom first time. The patient noted acute exacerbation of bronchial asthma, was started on antibiotic for the patient as well as corticosteroids. He has been using oxygen supplementation 3 liters nasal cannula, which has been continued. The patient was ordered the nebulizer medication for the patient which has not been received by the patient as a nebulizer at this time, other medication were obtained from the pharmacy. The patient was brought back to the hospital for the patient this morning and was hospitalized patient under care of Dr. Tianna Branham. The patient has been currently sitting on the chair at this time at the time of the assessment. He has been noted auyh-gu-deijfgle cough. There was no sputum expectoration. Denied symptoms of chest pain or hemoptysis. REVIEW OF SYSTEMS: CONSTITUTIONAL SYMPTOMS: Fatigue and tiredness noted without symptoms of fever or chills. EYES: Denies any burning, redness, or tenderness. EARS, NOSE, THROAT SYMPTOMS: No sore throat, hoarseness, otalgia, postnasal drainage. CARDIOVASCULAR SYSTEM: Denies anginal pain, edema or pain of the lower extremities. GASTROINTESTINAL SYMPTOMS: Denies dysphagia, nausea, vomiting, diarrhea, abdominal pain, hematemesis, melena, or hematochezia. SKIN: Denies lesions or rashes. MUSCULOSKELETAL SYMPTOMS: Denies acute joint pain, redness, or tenderness. CENTRAL NERVOUS SYSTEM: General weakness, fatigue was noted. GENITOURINARY SYMPTOMS: The patient noted with history of end-stage renal failure, hemodialysis regularly. Remaining systems were reviewed with the patient, they were noted all negative. PAST MEDICAL HISTORY: 1. The patient was noted with hospitalization in [facility] after admission from [facility] of the patient in October 2016 for the medical management of loculated pleural fluid secondary to acute bacterial infection, right side and recommend decortication of the patient. Also the patient developed acute hypoxic respiratory failure requiring mechanical ventilation. He was subsequently extubated. The patient treated in [facility] prior to final subsequent home discharge. 2. History of recurrent right pleural fluid of the patient, chest tube [place], [place] REPORT OF CONSULTATION NAME: NICHOL MG UNIT #: [id number] ROOM: [place] [address] DOCTOR: CHARAN CASH MD,[facility] BIRTHDATE: [birth year] insertion, decortication for the patient that was done in October 2015. 3. History of chronic recurrent pleural fluid in the past. 4. End-stage renal failure, on hemodialysis. 5. Atrial fibrillation. The patient is on anticoagulation. 6. History of type 2 diabetes mellitus. 7. Diverticulosis. 8. Peripheral neuropathy. 9. Jnst-nx-lesoqxfi obesity. PAST SURGICAL HISTORY: 1. Tonsillectomy. 2. Shoaib hole surgery for the patient for the evacuation of subdural hematoma. 3. Right lung decortication for the patient, which were noted without any evidence of chronic recurrent effusion in October 2015. 4. Dialysis catheter insertion for hemodialysis. 5. Kwame placement for the patient of the right lower leg for this patient for the fracture management. SOCIAL HISTORY: The patient is , has 2 children. Denies history of alcohol or illicit drug use. Tobacco use. FAMILY HISTORY: The patient's both parents were , mother at the age of 72 years with complications of heart problem. Father at the age of 6969 years old, complications related to the dementia. MEDICATIONS: The current administered medication of the patient noted as use of Flomax, calcium acetate, Effexor, lisinopril, Neurontin, BuSpar, Bumex, amlodipine, Protonix, DuoNeb, Levaquin, Rocephin and other p.r.n. medications. DRUG ALLERGY HISTORY: Noted known drug allergies. PHYSICAL EXAMINATION: GENERAL: A 66 years old white male currently noted to be awake and alert without any distress. Height for this patient was recorded on this admission 5 feet 11 inches, weight of 193 pounds. VITAL SIGNS: The temperature noted as 101 degree Fahrenheit for the patient. In the last 24 hour, respiratory rate of 18-28, heart rate of 109-88, blood pressure 136/64, patient 112/58. The pulse oxygen saturation for the patient recorded on 3 liters nasal cannula was 98% saturation. HEENT: Head was atraumatic. Eyes nonicterus. NECK: Supple. CARDIOVASCULAR: S1, S2 audible. LUNGS: Noted crackles and decreased breath sounds in the right side of the chest. ABDOMEN: Soft, nontender, bowel sounds present. CENTRAL NERVOUS SYSTEM: The patient limited examination. Cranial nerves 2-12 intact. No focal deficits. MUSCULOSKELETAL SYMPTOMS: No deformities. SKIN: Showed no lesions or rashes. [place], [place] REPORT OF CONSULTATION NAME: NICHOL MG UNIT #: [id number] ROOM: [place] [address] DOCTOR: CHARAN CASH MD,[facility] BIRTHDATE: [birth year] LABORATORY DATA: The lactic acid of 11/23/2016 was normal. On admission CBC of 11/24/2015 for the patient, WBC count 6.1, hemoglobin 10.9, hematocrit 33.1, platelet count 195,000. The BMP of the patient, BUN 31, creatinine 4.05, glucose 227 noted today. Troponin minimally elevated at 0.51. The chest x-ray of the patient that was done shows chronic pleural thickening on the right side for this patient with possibility of superimposed pneumonia, chronic changes will be considered. IMPRESSION: 1. The patient who has been currently admitted to the hospital noted with acute exacerbation of bronchial asthma as well as noted with findings of acute pneumonia, possibly suspected versus chronic changes on the right side. 2. History of recurrent right pleural fluid with video-assisted thoracoscopic surgery procedure in October 2015. 3. Chronic hypoxic respiratory failure that remains stable. PLAN OF TREATMENT: Order the sputum for Gram culture for this patient at this time and the current antibiotics as ordered. CT scan of the chest has been ordered for the patient without contrast by Dr. Tianna Branham so that will give us more clearer assessment of the ongoing right-side pulmonary process for additional assessment after that. The patient has been started on IV Solu-Medrol for this patient as well for the medical management of acute exacerbation of bronchial asthma. Continue bronchodilator for this patient as well. Usual care. All other treatment changes needs to be done for the patient based on the progression of the illness. Supportive care. Other therapy, plan of management. Usual care. Further treatment changes will be done based on the progression of the illness. Monitor temperature curve. Monitoring blood culture for this patient as well. The patient assessment and management was discussed with Dr. Tianna Branham on the phone. Thanks for allowing me to participate in the care of this patient. ANNALISA FARRAR MD CM:CONSTR:REPORT OF CONSULTATION 1417 11/24/16 0056 interface
--- NOTE | ~2016-11-23 | WRIGHTHP ---
[place], [place] PATIENT HISTORY AND PHYSICAL EXAM NAME: NICHOL MG UNIT #: [id number] ROOM: 526 DOCTOR: RIANA SERRANO MD BIRTHDATE: [birth year] DOS: 11/23/2016 HISTORY OF PRESENT ILLNESS: The patient is 66 years old, very well known to us. The patient comes in with complaints of shortness of breath. He was seen at Dr. Angel's office today and was told that he may have a pneumonia, was advised admission to the hospital. He denies having any chest pains or palpitations, does not have any fever or chills, does not have any abdominal pain, any emesis, but he does have some minimal nausea. He was last admitted to the hospital in 10/2014 here with acute CHF. A dialysis was given and he was discharged. In late October, he was then admitted to [facility] for pneumonia, was treated by Dr. Angel. He also had a thoracentesis at that time. PAST MEDICAL HISTORY: Also significant for, 1. Complete heart block. 2. Dual chamber pacemaker placement in 09/2016. 3. End-stage renal failure, on dialysis. 4. Type 2 diabetes mellitus. 5. Acute systolic CHF. 6. Chronic atrial fibrillation. 7. Osteomyelitis of spine with chronic urinary retention, straight catheterization. 8. Major depression with posttraumatic stress disorder. MEDICATIONS: That the patient is currently on are amlodipine 2.5 daily, Bumex 2 mg b.i.d., bupropion 100 mg daily, calcium 667 t.i.d., doxycycline 100 b.i.d., gabapentin 100 mg daily, lisinopril 10 daily, Protonix 40 daily, tamsulosin 0.4 mg daily, trazodone 200 mg at bedtime, venlafaxine 75 mg daily, Levemir 15 units at bedtime. SOCIAL HISTORY: Nonsmoker, does not use any alcohol. Lives at home. PHYSICAL EXAMINATION: GENERAL: He is awake and alert and oriented, in quite a lot of distress this morning, sitting up in his bed. He is unable to lay back flat. VITAL SIGNS: Pressure is 152/62, respirations 20, pulse of 116, temperature 98.6. LUNGS: Diminished breath sounds. HEART: Regular. ABDOMEN: Obese, soft. EXTREMITIES: Without any edema. LABORATORY AND DIAGNOSTIC DATA: At the time of admission: BMP: Glucose 227, BUN 31, creatinine 4.0, sodium 137, potassium 3.6, chloride 94, bicarbonate 35, calcium 8.2. Chest x-ray, right pleural effusion with right lower lobe airspace disease. Lactic acid is normal. WBC count is 6.1, hemoglobin 10.9. ASSESSMENT AND PLAN: 1. Acute onset of shortness of breath, most likely from right lower lobe pneumonia with right-sided pleural effusion. We will discuss with Dr. Angel about thoracentesis this morning. A CT of the chest will be ordered. [place], [place] PATIENT HISTORY AND PHYSICAL EXAM NAME: NICHOL MG UNIT #: [id number] ROOM: 526 DOCTOR: RIANA SERRANO MD BIRTHDATE: [birth year] 2. End-stage renal failure, on dialysis. The patient did receive a dialysis yesterday. Her doctor has been consulted. 3. History of osteomyelitis of the neck with straight catheterization q. shift, which will be ordered. 4. Possibility of acute congestive heart failure. 5. Again, awaiting the CT report to decide on whether the patient would benefit from an emergent dialysis. 6. Type 2 diabetes mellitus, insulin dependent. Continue home meds. RIANA SERRANO MD CM:HISPHYS:PATIENT HISTORY AND PHYSICAL EXAMINATION [id number] RIANA SERRANO MD 11/23/1616 interface
[2016-11-23 00:16] VITALS: BP 156/78
[~2016-11-23 00:16] MED LIST changes: +BUMETANIDE2 MG PO; +DOXYCYCLINE100 M3 PO; +FLOMAX0.4 MG PO; +MELATONIN1 M4 PO
[2016-11-23 00:46] LABS: BASO % 0.3 % (0.0-1.0); EOS # 0.1 10*3/uL (0.0-0.4); EOS % 2.3 % (1.0-4.0); HEMATOCRIT 33.1 % (42.0-52.0); HEMOGLOBIN 10.9 g/dl (14.0-18.0); LYMPH # 0.3 10*3/uL (1.3-4.4); LYMPH % 5.5 % (27.0-41.0); MEAN CELL VOLUME 104.1 fl (80.0-94.0); MEAN CORPUSCULAR HGB 34.3 pg (27.0-31.0); MEAN CORPUSCULAR HGB CONC 32.9 g/dl (33.0-37.0); MEAN PLATELET VOLUME 9.9 fl (9.6-12.3); MONO # 0.6 10*3/uL (0.1-1.0); MONO % 10.1 % (3.0-9.0); NEUT # 4.9 10*3/uL (2.3-7.9); NEUT % 81.3 % (47.0-73.0); PLATELET COUNT AUTOMATED 195 10*3/uL (130-400); RED BLOOD COUNT 3.18 10*6/uL (4.50-5.90); RED CELL DISTRI WIDTH 14.6 % (0-14.5); WHITE BLOOD COUNT 6.1 10*3/uL (4.8-10.8)
[2016-11-23 01:12] LABS: POTASSIUM 3.6 mmol/L (3.5-5.1)
[2016-11-23 01:15] LABS: TROPONIN I 0.051 ng/ml (<0.045)
[2016-11-23] MEDS ORDERED: AMLODIPINE BES2.5 MG PO (02:31)
[2016-11-23 03:00] VITALS: BP 152/62
[2016-11-23 08:00] VITALS: BP 138/62; BP 155/66
[2016-11-23] MEDS ORDERED: MIDODRINE HCL5 M1 PO (09:20)
[2016-11-23] MEDS ORDERED: VENTOLIN 02.5 MG/3 M INH (09:22)
[2016-11-23 12:00] VITALS: BP 112/58
[2016-11-23 16:00] VITALS: BP 138/68
[2016-11-23 18:19] LABS: ABG BASE EXCESS 4.4 mmol/L (-2.0-2.0); ABG CO2 CONTENT 30.6 mmol/L (23-27); ABG HCO3 29.2 mmol/l (22-26); ABG TEMPERATURE 99.8 F (98.0-99.0); ARTERIAL BLOOD GAS PH 7.4 (7.35-7.45); ARTERIAL BLOOD GAS PO2 81.7 mmHg (80-90)
[2016-11-23 19:20] VITALS: BP 147/76
[2016-11-23 22:50] LABS: BILIRUBIN NEGATIVE (NEGATIVE); BLOOD 3+ (NEGATIVE); CLARITY TURBID (CLEAR); COLOR YELLOW (YELLOW); GLUCOSE 2+ (NEGATIVE); KETONE NEGATIVE (NEGATIVE); LEUKO ESTERASE 2+ (NEGATIVE); NITRITE NEGATIVE (NEGATIVE); PROTEIN 3+ (NEGATIVE); SPECIFIC GRAVITY 1.015 (1.005-1.030); UROBILINOGEN 0.2 E.U./dl (0.2-1.0)
[2016-11-23 23:05] LABS: URINE REFLEX COMMENT YES (NO); WBC TNTC wbc/hpf (0-5)
[2016-11-24] VITALS: BP 135/71
[2016-11-24 04:00] VITALS: BP 146/73
[2016-11-24 08:00] VITALS: BP 141/68
[2016-11-24 12:00] VITALS: BP 150/60
[2016-11-24 16:00] VITALS: BP 124/77
[2016-11-24 20:00] VITALS: BP 161/79
[2016-11-25] VITALS (7 sets, daily range): BP systolic 138–162; BP diastolic 64–93
[2016-11-26] VITALS: BP 151/69
[2016-11-26 06:22] LABS: HEMATOCRIT 32.1 % (42.0-52.0); HEMOGLOBIN 10.6 g/dl (14.0-18.0); LYMPH # 0.5 10*3/uL (1.3-4.4); LYMPH % 11.3 % (27.0-41.0); MEAN CELL VOLUME 101.9 fl (80.0-94.0); MEAN CORPUSCULAR HGB 33.7 pg (27.0-31.0); MEAN PLATELET VOLUME 10.4 fl (9.6-12.3); MONO # 0.3 10*3/uL (0.1-1.0); NEUT # 3.2 10*3/uL (2.3-7.9); NEUT % 80.9 % (47.0-73.0); PLATELET COUNT AUTOMATED 175 10*3/uL (130-400); RED BLOOD COUNT 3.15 10*6/uL (4.50-5.90); RED CELL DISTRI WIDTH 14.1 % (0-14.5)
[2016-11-26 06:51] LABS: ALBUMIN 2.8 gm/dl (3.1-4.5); BILIRUBIN, TOTAL 0.4 mg/dl (0.2-1.0); POTASSIUM 5.1 mmol/L (3.5-5.1); TOTAL PROTEIN 6.9 gm/dL (6.4-8.2)
[2016-11-26 08:00] VITALS: BP 189/87
[2016-11-26 12:00] VITALS: BP 164/77
[2016-11-26 16:00] VITALS: BP 137/71
[2016-11-26 20:00] VITALS: BP 157/76
[2016-11-27] VITALS: BP 143/71
[2016-11-27 04:00] VITALS: BP 168/73
[2016-11-27 08:00] VITALS: BP 173/84
[2016-11-27 08:01] LABS: BASO % 0.1 % (0.0-1.0); HEMATOCRIT 31.1 % (42.0-52.0); HEMOGLOBIN 10.3 g/dl (14.0-18.0); IG # 0.2 10*3/uL (0.0-0.1); LYMPH # 0.6 10*3/uL (1.3-4.4); LYMPH % 6.8 % (27.0-41.0); MEAN CORPUSCULAR HGB 33.4 pg (27.0-31.0); MEAN CORPUSCULAR HGB CONC 33.1 g/dl (33.0-37.0); MEAN PLATELET VOLUME 9.7 fl (9.6-12.3); MONO # 0.5 10*3/uL (0.1-1.0); MONO % 5.7 % (3.0-9.0); NEUT # 7.1 10*3/uL (2.3-7.9); NEUT % 85.5 % (47.0-73.0); PLATELET COUNT AUTOMATED 165 10*3/uL (130-400); RED BLOOD COUNT 3.08 10*6/uL (4.50-5.90); RED CELL DISTRI WIDTH 14.4 % (0-14.5); WHITE BLOOD COUNT 8.3 10*3/uL (4.8-10.8)
[2016-11-27 08:21] LABS: ALBUMIN 2.8 gm/dl (3.1-4.5); BILIRUBIN, TOTAL 0.5 mg/dl (0.2-1.0); POTASSIUM 5.3 mmol/L (3.5-5.1); TOTAL PROTEIN 6.7 gm/dL (6.4-8.2)
[2016-11-27 12:00] VITALS: BP 111/81
[2016-11-27 16:00] VITALS: BP 132/51
[2016-11-27 20:05] VITALS: BP 130/52
[2016-11-28] VITALS: BP 131/56
[2016-11-28 08:00] VITALS: BP 126/74
[2016-11-28 12:00] VITALS: BP 150/63
[2016-11-28 16:00] VITALS: BP 149/59
[2016-11-28 20:00] VITALS: BP 130/50
[2016-11-29] VITALS: BP 150/64
[2016-11-29 07:58] LABS: HEMATOCRIT 33.8 % (42.0-52.0); HEMOGLOBIN 10.9 g/dl (14.0-18.0); MEAN CELL VOLUME 102.4 fl (80.0-94.0); MEAN CORPUSCULAR HGB CONC 32.2 g/dl (33.0-37.0); MEAN PLATELET VOLUME 9.9 fl (9.6-12.3); PLATELET COUNT AUTOMATED 169 10*3/uL (130-400); RED CELL DISTRI WIDTH 14.6 % (0-14.5)
[2016-11-29 08:00] VITALS: BP 154/72
[2016-11-29 08:10] LABS: ALBUMIN 2.7 gm/dl (3.1-4.5); PHOSPHOROUS 5.5 mg/dL (2.5-4.9); POTASSIUM 5.1 mmol/L (3.5-5.1)
[2016-11-29 08:17] LABS: LYMPHOCYTE # 0.8 10*3/uL (1.3-4.4); METAMYELOCYTES 2 % (0-0); MONOCYTE # 0.2 10*3/uL (0.1-1.0); NEUTROPHIL # 6.9 10*3/uL (2.3-7.9); NEUTROPHILS 86 % (47-73); PLATELET SUFFICIENCY NORMAL (NORMAL); TOTAL CELLS COUNTED 100 #CELLS
[2016-11-29 12:00] VITALS: BP 134/76
[2016-11-29 20:00] VITALS: BP 134/78
[2016-11-30] VITALS: BP 112/59
[2016-11-30 06:20] LABS: HEMATOCRIT 36.4 % (42.0-52.0); HEMOGLOBIN 11.8 g/dl (14.0-18.0); MEAN CELL VOLUME 102.2 fl (80.0-94.0); MEAN CORPUSCULAR HGB 33.1 pg (27.0-31.0); MEAN CORPUSCULAR HGB CONC 32.4 g/dl (33.0-37.0); MEAN PLATELET VOLUME 10.1 fl (9.6-12.3); PLATELET COUNT AUTOMATED 189 10*3/uL (130-400); RED BLOOD COUNT 3.56 10*6/uL (4.50-5.90); RED CELL DISTRI WIDTH 14.5 % (0-14.5); WHITE BLOOD COUNT 11.6 10*3/uL (4.8-10.8)
[2016-11-30 06:49] LABS: POTASSIUM 4.2 mmol/L (3.5-5.1)
[2016-11-30 07:08] LABS: LYMPHOCYTE # 0.9 10*3/uL (1.3-4.4); METAMYELOCYTES 1 % (0-0); MONOCYTE # 0.5 10*3/uL (0.1-1.0); NEUTROPHIL # 10.1 10*3/uL (2.3-7.9); NEUTROPHILS 87 % (47-73); TOTAL CELLS COUNTED 100 #CELLS
[2016-11-30 07:10] LABS: PLATELET SUFFICIENCY NORMAL (NORMAL); POLYCHROMASIA SLIGHT
[2016-11-30 08:00] VITALS: BP 127/58
[2016-11-30] MEDS ORDERED: LEVEMIR10 ML SC (08:29)
[2016-11-30] MEDS ORDERED: GLIPIZIDE5 MG PO (08:29)
[2016-11-30] MEDS ORDERED: LINEZOLID600 MG PO (08:29)
[2016-11-30 12:00] VITALS: BP 128/56
== END 2016-11-30 13:38 | disposition home health service (06) | DRG 177 ==
LOC: ED 00:16 → ICCU 01:15 → EDHOLD 01:15 → 5E 01:33 → ICCU 19:15 → 5E 11-27 14:08
PROVIDERS: Emergency Medicine Emergency Medical Services; Internal Medicine; Internal Medicine Critical Care Medicine; Internal Medicine Nephrology
PROC: 5A1D60Z (ICD-10-PCS; principal; 2016-11-27)
PROC: 5A09357 Assistance with Respiratory Ventilation, Less than 24 Consecutive Hours, Continuous Positive Airway Pressure (ICD-10-PCS; principal; 2016-11-27)
DX: J15.6 Pneumonia due to other Gram-negative bacteria (principal); J96.21 Acute and chronic respiratory failure with hypoxia; I13.2 Hypertensive heart and chronic kidney disease with heart failure and with stage 5 chronic kidney disease, or end stage renal disease; N17.9 Acute kidney failure, unspecified; I44.2 Atrioventricular block, complete; N18.6 End stage renal disease; I48.2 Chronic atrial fibrillation; E11.22 Type 2 diabetes mellitus with diabetic chronic kidney disease; J44.0 Chronic obstructive pulmonary disease with (acute) lower respiratory infection; J45.901 Unspecified asthma with (acute) exacerbation; J44.1 Chronic obstructive pulmonary disease with (acute) exacerbation; I50.20 Unspecified systolic (congestive) heart failure; N39.0 Urinary tract infection, site not specified; E78.5 Hyperlipidemia, unspecified; E11.40 Type 2 diabetes mellitus with diabetic neuropathy, unspecified; F32.9 Major depressive disorder, single episode, unspecified; F43.10 Post-traumatic stress disorder, unspecified; E66.9 Obesity, unspecified; E11.65 Type 2 diabetes mellitus with hyperglycemia; R62.7 Adult failure to thrive; B95.2 Enterococcus as the cause of diseases classified elsewhere; Z16.21 Resistance to vancomycin; T38.0X5A Adverse effect of glucocorticoids and synthetic analogues, initial encounter; G47.33 Obstructive sleep apnea (adult) (pediatric); D64.9 Anemia, unspecified; Z98.1 Arthrodesis status; Z88.1 Allergy status to other antibiotic agents; Z95.0 Presence of cardiac pacemaker; Z68.26 Body mass index [BMI] 26.0-26.9, adult; Z99.2 Dependence on renal dialysis; Z79.4 Long term (current) use of insulin; Y92.89 Other specified places as the place of occurrence of the external cause; Z82.49 Family history of ischemic heart disease and other diseases of the circulatory system; Z81.8 Family history of other mental and behavioral disorders

== ENCOUNTER → 2016-12-14 | Outpatient (CLI) | payer OTHER ==
[~2016-12-14] MED LIST changes: +AMLODIPINE BES2.5 MG PO; +LINEZOLID600 MG PO; +MIDODRINE HCL5 M1 PO; +VENTOLIN 02.5 MG/3 M INH
== END | disposition home or self-care (01) ==
LOC: RAD 12:13
DX: I51.7 Cardiomegaly (principal); J18.9 Pneumonia, unspecified organism; J98.4 Other disorders of lung; J90 Pleural effusion, not elsewhere classified

== ENCOUNTER 2017-01-07 15:59 | Inpatient (IN) | payer OTHER ==
[2017-01-07] VITALS (11 sets, daily range): BP systolic 103–142; BP diastolic 3–76
[~2017-01-07] VITALS: Ht 180.3 cm; Wt 79.0 kg
[2017-01-07 16:17] LABS: ABG BASE EXCESS 2.2 mmol/L (-2.0-2.0); ABG CO2 CONTENT 28.4 mmol/L (23-27); ABG TEMPERATURE 102.9 F (98.0-99.0); ARTERIAL BLOOD GAS PH 7.357 (7.35-7.45); ARTERIAL BLOOD GAS PO2 85.3 mmHg (80-90)
[2017-01-07 16:34] LABS: HEMATOCRIT 32.1 % (42.0-52.0); HEMOGLOBIN 10.6 g/dl (14.0-18.0); MEAN CELL VOLUME 100.3 fl (80.0-94.0); MEAN CORPUSCULAR HGB 33.1 pg (27.0-31.0); MEAN PLATELET VOLUME 11.2 fl (9.6-12.3); PLATELET COUNT AUTOMATED 132 10*3/uL (130-400); WHITE BLOOD COUNT 16.3 10*3/uL (4.8-10.8)
[2017-01-07 16:51] LABS: ALBUMIN 3.2 gm/dl (3.1-4.5); BILIRUBIN, TOTAL 0.5 mg/dl (0.2-1.0); POTASSIUM 4.5 mmol/L (3.5-5.1); TROPONIN I 0.042 ng/ml (<0.045)
[2017-01-07 16:55] LABS: LYMPHOCYTE # 0.5 10*3/uL (1.3-4.4); NEUTROPHIL # 14.8 10*3/uL (2.3-7.9); NEUTROPHILS 91 % (47-73); TOTAL CELLS COUNTED 100 #CELLS
[2017-01-07 16:56] LABS: PLATELET SUFFICIENCY NORMAL (NORMAL)
[2017-01-08] VITALS: BP 109/60
[2017-01-08] MEDS ORDERED: MONODOX100 MG PO (00:48)
[2017-01-08] MEDS ORDERED: GLUCOTROL5 MG PO (00:50)
[2017-01-08 04:06] VITALS: BP 117/56
[2017-01-08 06:00] LABS: BASO % 0.2 % (0.0-1.0); EOS # 0.1 10*3/uL (0.0-0.4); EOS % 0.3 % (1.0-4.0); HEMOGLOBIN 8.8 g/dl (14.0-18.0); IG # 0.1 10*3/uL (0.0-0.1); LYMPH # 0.7 10*3/uL (1.3-4.4); LYMPH % 4.7 % (27.0-41.0); MEAN CELL VOLUME 101.9 fl (80.0-94.0); MEAN CORPUSCULAR HGB 33.2 pg (27.0-31.0); MEAN CORPUSCULAR HGB CONC 32.6 g/dl (33.0-37.0); MEAN PLATELET VOLUME 10.8 fl (9.6-12.3); MONO # 0.9 10*3/uL (0.1-1.0); MONO % 6.1 % (3.0-9.0); NEUT # 12.6 10*3/uL (2.3-7.9); NEUT % 88.1 % (47.0-73.0); PLATELET COUNT AUTOMATED 110 10*3/uL (130-400); RED BLOOD COUNT 2.65 10*6/uL (4.50-5.90); RED CELL DISTRI WIDTH 13.2 % (0-14.5); WHITE BLOOD COUNT 14.3 10*3/uL (4.8-10.8)
[2017-01-08 06:04] LABS: ALBUMIN 2.7 gm/dl (3.1-4.5); BILIRUBIN, TOTAL 0.4 mg/dl (0.2-1.0); MAGNESIUM 1.9 mg/dL (1.5-2.1); PHOSPHOROUS 5.4 mg/dL (2.5-4.9); POTASSIUM 4.7 mmol/L (3.5-5.1)
[2017-01-08 08:00] VITALS: BP 115/62
[2017-01-08 14:00] VITALS: BP 106/60
[2017-01-08 16:00] VITALS: BP 106/62
[2017-01-08 20:00] VITALS: BP 96/50
[2017-01-09] VITALS: BP 91/71
[2017-01-09 08:00] VITALS: BP 113/63
[2017-01-09 12:00] VITALS: BP 125/67
[2017-01-09 16:00] VITALS: BP 109/79
[2017-01-09 20:00] VITALS: BP 128/73
[2017-01-10] VITALS: BP 125/74
[2017-01-10 06:12] LABS: BASO % 0.2 % (0.0-1.0); EOS # 0.2 10*3/uL (0.0-0.4); EOS % 1.5 % (1.0-4.0); HEMATOCRIT 28.6 % (42.0-52.0); HEMOGLOBIN 9.4 g/dl (14.0-18.0); IG # 0.1 10*3/uL (0.0-0.1); LYMPH # 0.5 10*3/uL (1.3-4.4); LYMPH % 4.6 % (27.0-41.0); MEAN CELL VOLUME 101.1 fl (80.0-94.0); MEAN CORPUSCULAR HGB 33.2 pg (27.0-31.0); MEAN CORPUSCULAR HGB CONC 32.9 g/dl (33.0-37.0); MEAN PLATELET VOLUME 10.7 fl (9.6-12.3); MONO # 0.5 10*3/uL (0.1-1.0); MONO % 5.1 % (3.0-9.0); NEUT # 8.9 10*3/uL (2.3-7.9); NEUT % 88.1 % (47.0-73.0); PLATELET COUNT AUTOMATED 134 10*3/uL (130-400); RED BLOOD COUNT 2.83 10*6/uL (4.50-5.90); RED CELL DISTRI WIDTH 13.3 % (0-14.5); WHITE BLOOD COUNT 10.1 10*3/uL (4.8-10.8)
[2017-01-10 06:35] LABS: POTASSIUM 4.1 mmol/L (3.5-5.1)
[2017-01-10 08:00] VITALS: BP 144/73; BP 82/61
[2017-01-10 16:00] VITALS: BP 172/79
[2017-01-10 20:00] VITALS: BP 118/51
[2017-01-11] VITALS: BP 123/68
[2017-01-11] MEDS ORDERED: CEFUROXIME AXE250 MG PO (07:25)
[2017-01-11 08:00] VITALS: BP 142/94
== END 2017-01-11 09:46 | disposition home or self-care (01) | DRG 871 ==
LOC: ED 15:59 → 5E 17:22 → EDHOLD 17:22 → ICCU 17:22 → 5E 01-08 06:42
PROVIDERS: Emergency Medicine; Internal Medicine
PROC: 5A1D60Z (ICD-10-PCS; principal; 2017-01-07)
PROC: 5A09357 Assistance with Respiratory Ventilation, Less than 24 Consecutive Hours, Continuous Positive Airway Pressure (ICD-10-PCS; 2017-01-07)
DX: A41.9 Sepsis, unspecified organism (principal); J69.0 Pneumonitis due to inhalation of food and vomit; J96.21 Acute and chronic respiratory failure with hypoxia; G93.41 Metabolic encephalopathy; N18.6 End stage renal disease; I12.0 Hypertensive chronic kidney disease with stage 5 chronic kidney disease or end stage renal disease; I48.91 Unspecified atrial fibrillation; J44.0 Chronic obstructive pulmonary disease with (acute) lower respiratory infection; J98.11 Atelectasis; E11.22 Type 2 diabetes mellitus with diabetic chronic kidney disease; R65.20 Severe sepsis without septic shock; Z99.2 Dependence on renal dialysis; D64.9 Anemia, unspecified; Z79.01 Long term (current) use of anticoagulants; K57.30 Diverticulosis of large intestine without perforation or abscess without bleeding; N25.0 Renal osteodystrophy; R62.7 Adult failure to thrive

== ENCOUNTER 2017-07-24 01:48 | Inpatient (IN) | payer OTHER ==
[~2017-07-24] VITALS: Wt 81.8 kg
--- NOTE | ~2017-07-24 | PR ---
[place], [place] PROGRESS NOTE NAME: NICHOL MG UNIT #: [id number] ROOM: [facility] DOCTOR: DANAY WINSLOW DO BIRTHDATE: [birth year] DOS: 07/25/2017 CODE NOTE The patient was found to be unresponsive in asystole. Compressions were ongoing when I arrived on scene. Patient's code was run according to ACLS guidelines. Patient was given multiple rounds of epinephrine along with an amp of bicarb. Patient was intubated using an 8 ET tube. Breath sounds heard bilaterally. Good fogging of the tube with color change with the CO2 detector. Pulse ox improved. Patient is satting in the high 90s on 100% oxygen. We got spontaneous return of circulation. Patient was transferred to the ICU. Dr. Dykes was contacted for further orders. EKG was obtained and found to be a ventricular paced rhythm. Patient has a known pacemaker with no further analysis on the EKG. It was sinus tach in the low 100s. Tube was confirmed. Breath sounds heard in both lung king, absent in the epigastrium. Care was transferred back to Dr. Dykes. DANYA WINSLOW DO CM:ISAI [phone] DANYA WINSLOW DO 07/26/17 0155 interface
--- NOTE | ~2017-07-24 | CON ---
[place], [place] REPORT OF CONSULTATION NAME: [facility]OL [facility] [id number] UNIT #: [id number] ROOM: 526 DOCTOR: ABDOUL SOLANO MD BIRTHDATE: [birth year] DOS: 07/25/2017 REASON FOR CONSULTATION: Preoperative cardiac assessment prior to hip surgery, elevated troponin level. HISTORY OF PRESENT ILLNESS: The patient is a 67-year-old man who has been seen by [facility] in 2016, but not since then. He presented to the hospital now after falling out of bed and fracturing his hip. 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 The patient is essentially wheelchair bound. He was sitting on the side of the bed and fell landing on his left hip. X-ray shows that he has sustained a nondisplaced left intertrochanteric fracture. He was seen by Orthopedics and plans are being made for him to transfer to a tertiary medical center ([facility]) for repair of the hip fracture and ongoing postoperative care. Currently, the patient denies any chest pain or dyspnea. He denies lightheadedness or syncope. He does get intermittent pain in the hip. PAST MEDICAL HISTORY: Includes: 1. Type 2 diabetes mellitus. 2. End-stage renal disease. The patient is on dialysis. 3. History of stroke with encephalomalacia of the right temporal lobe. 4. History of hypertension. 5. History of conduction system disorder. The patient had atrial fibrillation in the past. When I saw him in 2015, he had a junctional rhythm with AV dissociation. He had an adequate response to his junctional rhythm and was asymptomatic. He subsequently was seen in [address] Marin and a DDD pacemaker was placed. The patient is unsure who is actually caring for the pacemaker at this time. 6. History of anticoagulant therapy. The patient states he was on anticoagulation, but this was stopped when he was placed on dialysis. 7. Hospitalization on 10/04/2015 with chest pain and large right pleural effusion. 8. History of osteomyelitis of the cervical spine, status post surgery at the [facility] in 2013. The patient was left with quadriplegia. MEDICATIONS PRIOR TO ADMISSION: Albuterol by inhaler q.i.d., brimonidine tartrate eye drops in the right eye b.i.d., amlodipine 2.5 mg daily, bumetanide 2 mg every other day on nondialysis days with 1 mg daily on dialysis days, bupropion 150 mg b.i.d., calcium acetate 667 mg t.i.d., cefuroxime 250 mg p.o. b.i.d., doxycycline 100 mg b.i.d., gabapentin 100 mg daily, glipizide 5 mg b.i.d., lisinopril 10 mg daily, melatonin 3 mg at bedtime, midodrine 5 mg 3 [place], [place] REPORT OF CONSULTATION NAME: NICHOL MG UNIT #: [id number] ROOM: 526 DOCTOR: ABDOUL SOLANO MD BIRTHDATE: [birth year] times a day during dialysis, pantoprazole 40 mg daily, prednisolone 5 mg 2 tablets daily, ropinirole 1 mg at bedtime, tamsulosin 0.4 mg at bedtime, trazodone 200 mg at bedtime, venlafaxine 75 mg daily and Levemir insulin 25 units subcutaneously at bedtime. ALLERGIES: The patient has no known drug allergies. REVIEW OF SYSTEMS: The patient denies diplopia or loss of vision. He does have generalized weakness. He states that he is able to spring salvage worker pivot, but is not able to ambulate. He spends most of his time in a bed or in a wheelchair. He denies any recent increasing shortness of breath. He denies chest pain. He does have a nonproductive cough. He denies fevers or chills. He denies orthopnea or PND. He denies hemoptysis or hematemesis. He denies change in bowel or bladder habits. He denies blood in his urine or stools. He denies any peripheral edema. The remainder of the review of systems is negative except as noted above. FAMILY HISTORY: Noncontributory. Both his parents are . His mother at age 72 from complications of a heart problem. His father at age 69 because of complications related to dementia. SOCIAL HISTORY: The patient is . He does have 2 children. He does not have a history of alcohol or drug abuse. PHYSICAL EXAMINATION: GENERAL: The patient is a well-nourished white male who looks older than his stated age. VITAL SIGNS: Pulse is 100 and regular, blood pressure is 96/78. He is afebrile. NECK: Supple. He has no jugular distention or hepatojugular reflux. Carotids are full. He has no bruits. He has no neck or supraclavicular masses. LUNGS: Respirations are unlabored at rest. He does have decreased breath sounds at the right side with a few crackles at the right base. His left lung is fairly clear. He has no presacral edema. CARDIOVASCULAR: His heart has a regular rhythm. He has a fourth heart sound, but no third heart sound or obvious rub. He does have a grade 3/6 late peaking systolic ejection murmur along the left sternal border, which radiates toward the base. The second heart sound is preserved, but diminished. He has no precordial heave, lift or thrill. ABDOMEN: Soft and normally active without masses, organomegaly or bruits. EXTREMITIES: Trace edema. Peripheral pulses are diminished bilaterally, but palpable. LABORATORY DATA: I reviewed his electrocardiogram. It shows sinus tachycardia with 100% atrial tracking and ventricular pacing. Chest x-ray shows a right basilar airspace disease with mild pulmonary vascular congestion and stable cardiomegaly. Hemoglobin is 10.1, hematocrit 32.1. There are 8300 white cells and 133,000 platelets. INR is 1.1. Sodium is 137, potassium 4.2, chloride 98, CO2 of 33, BUN 42, creatinine 6.3. Initial troponin [place], [place] REPORT OF CONSULTATION NAME: NICHOL MG UNIT #: [id number] ROOM: 526 DOCTOR: ABDOUL SOLANO MD BIRTHDATE: [birth year] level was 0.048 with a followup of 0.072. In reviewing the patient's history, I note that his troponin has been elevated since 2013 and is never less than 0.036, but is often in the 0.05 range. An echocardiogram is available from 10/05/2015 and showed normal left ventricular size with mild concentric left ventricular hypertrophy, normal regional wall motion and systolic function with stage II diastolic relaxation abnormalities, aortic sclerosis without stenosis, but with mild aortic insufficiency, mild tricuspid insufficiency with Doppler evidence for mildly elevated right ventricular systolic pressures. IMPRESSIONS: 1. Status post fall with left hip fracture. 2. Mild elevation in troponin. This appears to be a chronic phenomenon and is likely related to his renal insufficiency and dialysis. He has no documented history of coronary artery disease or left ventricular systolic dysfunction. 3. Systolic ejection murmur consistent with aortic stenosis. His most recent echocardiogram in September 2015 did not show aortic stenosis, but did show aortic sclerosis. 4. Conduction system disorder with AV dissociation. The patient is status post placement of a DDD pacemaker, probably in mid 2016. 5. Type 2 diabetes mellitus, on insulin. 6. End-stage renal disease. 7. History of cervical spine osteomyelitis complicated by quadriplegia. PLAN: The patient does have an acute hip fracture and therefore we should do everything we can to get him through surgery. I am concerned, however, at the character of his heart murmur and would like to see an echocardiogram done prior to his being subjected to general anesthesia. It is my understanding that the patient will be transferred to a tertiary care facility, likely [facility], for further management. The echocardiogram can be done either here or there, but should be done prior to surgery. We will continue to follow him with his other physicians. Thank Dr. Dykes for asking our advice regarding the patient's care. [place], [place] REPORT OF CONSULTATION NAME: NICHOL MG UNIT #: [id number] ROOM: 526 DOCTOR: ABDOUL SOLANO MD BIRTHDATE: [birth year] ABDOUL SOLANO MD CM:CONSTR:REPORT OF CONSULTATION [id number] 07/25/17 1549 interface
--- NOTE | ~2017-07-24 | DS ---
[place], [place] DISCHARGE SUMMARY NAME: NICHOL MG [facility] #: [id number] UNIT #: [id number] ROOM: 526 DOCTOR: LISA CORTES MD BIRTHDATE: [birth year] DOS: 07/25/2017 ANTICIPATED DATE OF DISCHARGE: 07/25/2017 DISCHARGE DIAGNOSES: 1. The patient with acute intertrochanteric fracture of the femoral neck of the left hip, seen by Dr. Theodore. 2. Benign prostatic hypertrophy and urinary retention. 3. End-stage kidney disease. The patient on hemodialysis. 4. Type 2 diabetes mellitus. 5. Major depression, recurrent, moderate. 6. Chronic systolic type congestive heart failure. 7. Benign essential hypertension. 8. Old age adult failure to thrive and advanced disability and inability to walk. The patient can barely transfer with help. 9. Chronic obstructive pulmonary disease. 10. Chronic atrial fibrillation. 11. Mixed hyperlipidemia. 12. Benign essential hypertension. 13. Left ventricular hypertrophy. 14. Anemia due to chronic disease and kidney failure. 15. Complete heart block with dual chamber pacemaker placement in 09/2016. HOSPITAL COURSE: The patient presented to [facility] when after a fall on the floor when he was trying to sit up in the bed and he broke his left hip as mentioned above. He had left-sided intertrochanteric fracture of the femoral neck. The patient was considered very high risk for surgery at [facility] because of his kidney failure and cardiac disease. I will try to transfer the patient to [facility] as recommended by Dr. Theodore, the orthopedic surgeon. 1. End-stage kidney disease and kidney failure with patient being on hemodialysis, followed by Dr. Aguilar. 2. History of BPH and urine retention, which is maintained by p.r.n. straight catheterization. The patient also remains on Flomax. 3. Type 2 diabetes mellitus. Blood sugars are monitored and treated. The patient is also on insulin. 4. Major depression, recurrent, moderate, treated and controlled. 5. Adult failure to thrive. We took bedsore precautions, air mattress. The patient also has ambulatory dysfunction. 6. Benign essential hypertension. The patient remains on amlodipine and lisinopril. Blood pressure is being monitored and controlled, remaining on the lower side. LABORATORY DATA: BUN and creatinine 42 and 6.3. Normal serum electrolytes. Hypokalemia with potassium level of 3.3, normalized now. The patient was given extra potassium. Hemoglobin of 10.1, chronic anemia, no leukocytosis. DISCHARGE MANAGEMENT: Include Bumex 1 mg every Sunday, Sunday, Sunday and 2 mg every Sunday, Sunday, and Sunday. The patient was on glipizide 10 mg b.i.d., which I put on hold for now, Tylenol p.r.n. [place], [place] DISCHARGE SUMMARY NAME: NICHOL MG UNIT #: [id number] ROOM: 526 DOCTOR: LISA CORTES MD BIRTHDATE: [birth year] LISA CORTES MD CM:DENAE [id number] LISA CORTES MD 07/25/17 1223 interface
--- NOTE | ~2017-07-24 | WRIGHTHP ---
[place], [place] PATIENT HISTORY AND PHYSICAL EXAM NAME: NICHOL MG [facility] #: [id number] UNIT #: [id number] ROOM: 526 DOCTOR: LISA CORTES MD BIRTHDATE: [birth year] DOS: 07/24/2017 HISTORY OF PRESENT ILLNESS: The patient is a 67-year-old gentleman with a past medical history of: 1. End-stage kidney disease, requiring hemodialysis. 2. COPD. 3. Chronic atrial fibrillation. 4. Mixed hyperlipidemia. 5. Hypertension. 6. Left ventricular hypertrophy. 7. Anemia of chronic disease and kidney failure. 8. Complete heart block, with dual chamber pacemaker placement in September 2016. 9. Type 2 diabetes mellitus. 10. Chronic systolic type congestive heart failure. 11. History of chronic urinary retention, treated with regular straight cath. 12. History of major depression, recurrent. The patient presented to the Emergency Department at [facility] after he fell out of bed while trying to get up, resulting in severe left hip pains and was found to have left intertrochanteric femoral neck fracture. The patient was recommended for admission in anticipation for left hip surgery and Dr. Theodore, the orthopedic surgeon was consulted. No complaints of chest pain. No increasing shortness of breath. No GI or urinary symptoms. REVIEW OF SYSTEMS: LUNGS: No increasing shortness of breath. GASTROINTESTINAL: No nausea, vomiting, diarrhea or constipation. CARDIOVASCULAR: No chest pains or palpitations. FAMILY HISTORY: Noncontributory. SOCIAL HISTORY: Denies smoking cigarettes, alcohol or drug abuse. MEDICATIONS: The patient takes Bumex, glipizide, DuoNeb, brimonidine eyedrops, amlodipine, Wellbutrin, gabapentin, Protonix, ropinirole, Flomax, trazodone, Effexor, Levemir insulin. ALLERGIES: No known drug allergies. PHYSICAL EXAMINATION: GENERAL: Alert, oriented x 3, quite weak, but in no distress. EXTREMITIES: The patient has external rotation of the left lower extremity with generalized weakness. IMPRESSION AND PLAN: 1. The patient with acute intertrochanteric fracture of the femoral neck on left side, which requires surgery. Dr. Theodore, the orthopedic surgeon has been consulted. The patient is not complaining of any recent chest pains. He has a [place], [place] PATIENT HISTORY AND PHYSICAL EXAM [facility] [id number] UNIT #: [id number] ROOM: 526 DOCTOR: LISA CORTES MD BIRTHDATE: [address] and history of systolic type chronic congestive heart failure, complete heart block and chronic atrial fibrillation, presently without any increased shortness of breath and no chest pain. The patient is not giving any history of bleeding disorder or adverse reaction to general anesthesia in the past and he is not taking any anticoagulants. The patient has multiple medical problems which increase his surgical mortality, but he is in a stable condition at present time. 2. History of benign prostatic hypertrophy and urine retention. The patient remains on Flomax and requires straight catheterization for urinary retention on regular basis. 3. End-stage kidney disease. The patient remains on hemodialysis. His hospitality housekeeper has been consulted for continued hemodialysis. 4. Type 2 diabetes mellitus. Blood sugars are being monitored and treated as needed. 5. Major depression, recurrent, moderate. All of his treatment will be continued. 6. Chronic systolic type congestive heart failure. The patient remains on Bumex, which is being continued. 7. Benign essential hypertension, treated with amlodipine and lisinopril, which are being continued. LISA CORTES MD CM:HISPHYS:PATIENT HISTORY AND PHYSICAL EXAMINATION [id number] LISA CORTES MD 07/24/17 175 interface
[~2017-07-24 01:48] MED LIST changes: +BUMETANIDE1 MG PO; -BUMETANIDE2 MG PO; +CEFUROXIME AXE250 MG PO; +GLUCOTROL5 MG PO; -MELATONIN1 M4 PO; +MELATONIN3 MG PO; +MONODOX100 MG PO
[2017-07-24 01:54] VITALS: BP 118/68
[2017-07-24 02:25] LABS: BASO % 0.2 % (0.0-1.0); EOS # 0.2 10*3/uL (0.0-0.4); EOS % 2.5 % (1.0-4.0); HEMATOCRIT 32.1 % (42.0-52.0); HEMOGLOBIN 10.1 g/dl (14.0-18.0); LYMPH # 0.4 10*3/uL (1.3-4.4); LYMPH % 4.8 % (27.0-41.0); MEAN CELL VOLUME 104.9 fl (80.0-94.0); MEAN CORPUSCULAR HGB CONC 31.5 g/dl (33.0-37.0); MONO # 0.5 10*3/uL (0.1-1.0); MONO % 6.5 % (3.0-9.0); NEUT # 7.1 10*3/uL (2.3-7.9); NEUT % 85.4 % (47.0-73.0); PLATELET COUNT AUTOMATED 133 10*3/uL (130-400); RED BLOOD COUNT 3.06 10*6/uL (4.50-5.90); RED CELL DISTRI WIDTH 16.5 % (0-14.5); WHITE BLOOD COUNT 8.3 10*3/uL (4.8-10.8)
[2017-07-24 02:35] LABS: ACT PARTIAL THROMBO TIME 29.9 SECONDS (20.8-31.5); INTERNATIONAL NORM RATIO 1.1 (2.0-3.5)
[2017-07-24 02:41] LABS: ALBUMIN 2.6 gm/dl (3.1-4.5); CREATININE 4.83 mg/dL (0.70-1.30); POTASSIUM 3.3 mmol/L (3.5-5.1); TOTAL PROTEIN 6.1 gm/dL (6.4-8.2)
[2017-07-24 02:45] LABS: TROPONIN I 0.048 ng/ml (<0.045)
[2017-07-24] MEDS ORDERED: MILLIPRED5 MG PO (03:48)
[2017-07-24] MEDS ORDERED: VENLAFAXINE75 M1 PO (03:53)
[2017-07-24] MEDS ORDERED: ROPINIROLE HYDRO1 MG PO (03:54)
[2017-07-24] MEDS ORDERED: DOXYCYCLINE MO100 MG PO (03:57)
[2017-07-24] MEDS ORDERED: BRIMONIDINE TAR10 ML OPH (03:58)
[2017-07-24 04:15] VITALS: BP 129/69
[2017-07-24] MEDS ORDERED: BUMETANIDE1 MG PO (05:23)
[2017-07-24 08:00] VITALS: BP 98/58
[2017-07-24 12:00] VITALS: BP 96/57
[2017-07-24 16:00] VITALS: BP 90/50
[2017-07-24 20:00] VITALS: BP 98/57
[2017-07-25] VITALS: BP 98/51
[2017-07-25 02:25] LABS: BILIRUBIN NEGATIVE (NEGATIVE); BLOOD 3+ (NEGATIVE); CLARITY TURBID (CLEAR); COLOR YELLOW (YELLOW); GLUCOSE NEGATIVE (NEGATIVE); KETONE TRACE (NEGATIVE); LEUKO ESTERASE 3+ (NEGATIVE); NITRITE NEGATIVE (NEGATIVE); PH 6.5 (5.0-9.0); RBC TNTC rbc/hpf (0-2); SPECIFIC GRAVITY 1.015 (1.005-1.030); UROBILINOGEN < 0.2 E.U./dl (0.2-1.0); WBC TNTC wbc/hpf (0-5)
[2017-07-25 02:26] LABS: BACTERIA 3+
[2017-07-25 08:00] VITALS: BP 96/78
[2017-07-25 08:08] LABS: POTASSIUM 4.2 mmol/L (3.5-5.1)
[2017-07-25 08:11] LABS: CREATININE 6.3 mg/dL (0.70-1.30)
[2017-07-25 12:00] VITALS: BP 101/67
[2017-07-25 16:00] VITALS: BP 82/59
[2017-07-25 16:17] VITALS: BP 99/65
[2017-07-25 20:00] VITALS: BP 81/62
[2017-07-26] VITALS (12 sets, daily range): BP systolic 62–136; BP diastolic 30–103
[2017-07-26 01:00] LABS: BASO % 0.3 % (0.0-1.0); EOS # 0.3 10*3/uL (0.0-0.4); EOS % 2.9 % (1.0-4.0); HEMATOCRIT 32.3 % (42.0-52.0); HEMOGLOBIN 9.9 g/dl (14.0-18.0); LYMPH # 0.7 10*3/uL (1.3-4.4); LYMPH % 5.8 % (27.0-41.0); MEAN CORPUSCULAR HGB 33.1 pg (27.0-31.0); MEAN CORPUSCULAR HGB CONC 30.7 g/dl (33.0-37.0); MEAN PLATELET VOLUME 11.6 fl (9.6-12.3); MONO # 0.7 10*3/uL (0.1-1.0); MONO % 5.6 % (3.0-9.0); NEUT % 83.8 % (47.0-73.0); PLATELET COUNT AUTOMATED 150 10*3/uL (130-400); RED BLOOD COUNT 2.99 10*6/uL (4.50-5.90); RED CELL DISTRI WIDTH 16.2 % (0-14.5); WHITE BLOOD COUNT 11.9 10*3/uL (4.8-10.8)
[2017-07-26 01:15] LABS: INTERNATIONAL NORM RATIO 1.2 (2.0-3.5)
[2017-07-26 01:18] LABS: PHOSPHOROUS 4.9 mg/dL (2.5-4.9)
[2017-07-26 01:24] LABS: ALBUMIN 2.5 gm/dl (3.1-4.5); CREATININE 4.3 mg/dL (0.70-1.30); POTASSIUM 4.6 mmol/L (3.5-5.1)
[2017-07-26 01:31] LABS: TROPONIN I 0.196 ng/ml (<0.045)
== END 2017-07-26 03:53 | disposition short-term general hospital (02) | DRG 535 ==
LOC: ED 01:48 → EDHOLD 03:13 → 5E 03:13 → ICCU 07-25 23:47
PROVIDERS: Emergency Medicine Emergency Medical Services; Hospitalist; Internal Medicine; Student in an Organized Health Care Education/Training Program
DX: S72.142A Displaced intertrochanteric fracture of left femur, initial encounter for closed fracture (principal); N18.6 End stage renal disease; I46.9 Cardiac arrest, cause unspecified; I13.2 Hypertensive heart and chronic kidney disease with heart failure and with stage 5 chronic kidney disease, or end stage renal disease; I44.2 Atrioventricular block, complete; E11.22 Type 2 diabetes mellitus with diabetic chronic kidney disease; E11.40 Type 2 diabetes mellitus with diabetic neuropathy, unspecified; I45.89 Other specified conduction disorders; F33.1 Major depressive disorder, recurrent, moderate; I50.22 Chronic systolic (congestive) heart failure; S72.002A Fracture of unspecified part of neck of left femur, initial encounter for closed fracture; E78.2 Mixed hyperlipidemia; I48.2 Chronic atrial fibrillation; J44.9 Chronic obstructive pulmonary disease, unspecified; D63.1 Anemia in chronic kidney disease; N40.1 Benign prostatic hyperplasia with lower urinary tract symptoms; W17.89XA Other fall from one level to another, initial encounter; R33.8 Other retention of urine; R62.7 Adult failure to thrive; Y93.89 Activity, other specified; Z99.2 Dependence on renal dialysis; Z79.01 Long term (current) use of anticoagulants; Z79.82 Long term (current) use of aspirin; Z79.899 Other long term (current) drug therapy; Z86.73 Personal history of transient ischemic attack (TIA), and cerebral infarction without residual deficits; Z82.49 Family history of ischemic heart disease and other diseases of the circulatory system; Z82.0 Family history of epilepsy and other diseases of the nervous system; Z79.4 Long term (current) use of insulin; Z79.84 Long term (current) use of oral hypoglycemic drugs; Z87.01 Personal history of pneumonia (recurrent); Y92.098 Other place in other non-institutional residence as the place of occurrence of the external cause